=== PATIENT | female | born 1970 | race Caucasian/White ===

== ENCOUNTER 2022-08-04 07:55 | Emergency (ER) | payer OTHER ==
[~2022-08-04] VITALS: Ht 160 cm; Wt 85.0 kg
[2022-08-04] MEDS ORDERED: LIDOCAINE HCL/EPINEPHRINE 1%-EPI 1:100,000 20 ML VIAL INFIL ONE (08:45)
[2022-08-04] MEDS ORDERED: IBUPROFEN 400MG TABLET PO ONE (09:00)
[2022-08-04] MEDS ORDERED: LIDOCAINE HCL/EPINEPHRINE 1%-EPI 1:100,000 10 ML VIAL IJ SCH (09:00)
[2022-08-04 09:04] VITALS: BP 175/97
[2022-08-04] MEDS ORDERED: BACITRACIN ZINC OINT UDPKT TOP ONE (09:15)
[2022-08-04] MEDS ORDERED: IBUP-2028 MT (09:38)
[2022-08-04] MEDS ORDERED: CEPH500T MT (09:38)
[2022-08-04] MEDS ORDERED: BACI1PAC12 TP (09:38)
== END 2022-08-04 09:47 | disposition home or self-care (01) ==
LOC: ER 07:55
DX: S62.633A Displaced fracture of distal phalanx of left middle finger, initial encounter for closed fracture (principal); X58.XXXA Exposure to other specified factors, initial encounter; Y93.89 Activity, other specified; Y92.89 Other specified places as the place of occurrence of the external cause; Y99.8 Other external cause status
CPT/HCPCS: 12001; 73140; 99283; J3490